=== PATIENT | female | born 1955 | race Caucasian/White ===

== ENCOUNTER 2018-07-15 09:58 | Emergency (ER) | payer OTHER ==
[2018-07-15] MEDS: ONDANSETRON (ODT) 4 MG TAB ODT (10:22)
[2018-07-15] MEDS: HYDROCODONE/APAP (5/325) TAB PO (10:22)
== END 2018-07-15 11:22 | disposition home or self-care (01) ==
LOC: FTE 11:22
DX: S30.0XXA Contusion of lower back and pelvis, initial encounter (principal); I10 Essential (primary) hypertension; J45.909 Unspecified asthma, uncomplicated; W01.0XXA Fall on same level from slipping, tripping and stumbling without subsequent striking against object, initial encounter; Z79.84 Long term (current) use of oral hypoglycemic drugs
CPT/HCPCS: 72220; 73510; 99284-25